=== PATIENT | female | born 1965 | race Caucasian/White ===

== ENCOUNTER 2018-05-21 13:10 | Outpatient (CLI) | payer OTHER | END 2018-05-21 19:07 | disposition home or self-care (01) | LOC: SRD 13:10 | DX: M25.462 Effusion, left knee (principal); M23.92 Unspecified internal derangement of left knee | CPT/HCPCS: 73560-TC ==

== ENCOUNTER 2018-06-11 10:06 | Outpatient (CLI) | payer OTHER | END 2018-06-11 18:55 | disposition home or self-care (01) | LOC: SMI 10:06 | DX: R51 Headache (principal); Z82.49 Family history of ischemic heart disease and other diseases of the circulatory system | CPT/HCPCS: 70544 ==

== ENCOUNTER 2018-12-19 15:27 | Outpatient (CLI) | payer OTHER | END 2018-12-19 21:10 | disposition home or self-care (01) | LOC: SRD 15:27 | DX: J40 Bronchitis, not specified as acute or chronic (principal) | CPT/HCPCS: 71046-TC ==

== ENCOUNTER → 2019-04-03 | Outpatient (CLI) | payer OTHER | END | disposition home or self-care (01) | LOC: SRD 14:23 | PROVIDERS: ATTEND Specialist | DX: S16.1XXD Strain of muscle, fascia and tendon at neck level, subsequent encounter (principal); X58.XXXD Exposure to other specified factors, subsequent encounter | CPT/HCPCS: 72050-TC; 72072-TC ==